=== PATIENT | male | born 1955 | race Caucasian/White ===

== ENCOUNTER 2022-02-13 08:37 | Emergency (ER) | payer SELFPAY ==
[~2022-02-13] VITALS: Ht 172.7 cm; Wt 80.7 kg
[2022-02-13] MEDS ORDERED: DOXYCYCLINE HY100 MG PO (08:55)
== END 2022-02-13 08:55 | disposition home or self-care (01) ==
LOC: ER 08:41
DX: L02.11 Cutaneous abscess of neck (principal); I10 Essential (primary) hypertension; F17.210 Nicotine dependence, cigarettes, uncomplicated
CPT/HCPCS: 99283